=== PATIENT | female | born 1950 | race Hispanic/Latino ===

== ENCOUNTER 2017-09-19 11:51 | Outpatient (CLI) | payer MEDICARE ==
--- NOTE | 2017-09-19 12:36 | XRay Report ---
ROUTINE CHEST, TWO VIEWS: HISTORY: Fever. The trachea, heart, mediastinal contour, lung morton and bony thorax are unremarkable. IMPRESSION: Unremarkable chest x-ray. No evidence for pneumonia.
== END 2017-09-19 11:52 | disposition home or self-care (01) ==
LOC: XRAY 11:51
PROVIDERS: ATTEND Nurse Practitioner
DX: R50.9 Fever, unspecified (principal); M81.0 Age-related osteoporosis without current pathological fracture
CPT/HCPCS: 71046

== ENCOUNTER 2017-12-11 15:13 | Outpatient (CLI) | payer MEDICARE ==
--- NOTE | 2017-12-11 16:11 | Mammography Report ---
BILATERAL DIGITAL SCREENING MAMMOGRAM WITH CAD: 12/11/17 15:13:00 CLINICAL: Routine screening.Breast cancer survivor status post left partial mastectomy . COMPARISON:11/16/15 FINDINGS: The retroperitoneum is a dense, which may obscure small masses. The left breast is smaller than the right. Minimal postsurgical scar. No mass, architectural distortion or suspicious calcifications. IMPRESSION: No mammographic evidence of malignancy. BI-RADS CATEGORY: 2 -- Benign RECOMMENDATION: Routine mammographic screening in one year. COMMENT: Patient follow-up letters are generated via our [employer] application.
== END 2017-12-11 15:14 | disposition home or self-care (01) ==
LOC: SPVWC 15:13
PROVIDERS: ATTEND Internal Medicine Hematology & Oncology
DX: Z12.31 Encounter for screening mammogram for malignant neoplasm of breast (principal)
CPT/HCPCS: 77067

== ENCOUNTER 2018-12-12 13:00 | Outpatient (CLI) | payer MEDICARE ==
--- NOTE | 2018-12-12 16:01 | Mammography Report ---
BILATERAL DIGITAL SCREENING MAMMOGRAM WITH CAD INDICATION: Routine screening mammography. Breast cancer survivor status post left partial mastectomy . TECHNIQUE: Digital bilateral 2D mammography was obtained in the craniocaudal and mediolateral obliq ue projections. This examination was interpreted with the benefit of Computer-Aided Detection analysi s. COMPARISON: 12/11/2017 FINDINGS: Breast Density: There are scattered areas of fibroglandular density. There is no evidence of dominant mass, suspicious calcifications or architectural distortion in eith er breast. IMPRESSION:No mammographic evidence of malignancy. BI-RADS Category 1: Negative. No mammographic evidence of malignancy. Recommend routine screening m ammography in one year. A "normal" or negative report should not discourage follow up or biopsy of a clinically significant f inding. A written summary of these findings will be mailed to the patient. The patient will be entered into a mammography reporting system which will generate a reminder letter for the patient's next appointmen t at the appropriate interval. The [employer] recommends yearly mammograms starting at age 40 and continuing as l lauren as a woman is in good health. Breast MRI is recommended for women with an approximate 20-25% or greater lifetime risk of breast cancer, including women with a strong family history of breast or ova xu cancer or who have been treated for Hodgkin's disease. Signer Name: Isidro Lou MD Signed: 12/12/2018 3:57 PM Workstation Name: [id number]
== END 2018-12-12 13:01 | disposition home or self-care (01) ==
LOC: MAMMO 13:00 → SPVWC 13:00
PROVIDERS: ATTEND Internal Medicine Hematology & Oncology
DX: Z12.31 Encounter for screening mammogram for malignant neoplasm of breast (principal)
CPT/HCPCS: 77067

== ENCOUNTER 2019-04-02 11:04 | Outpatient (CLI) | payer MEDICARE ==
[2019-04-02 12:32] LABS: Basophils % (Auto) 0.6 % (0.0-1.8); Eosinophils # (Auto) 0.1 K/mm3 (0.0-0.4); Eosinophils % (Auto) 1.9 % (0.0-4.3); Hematocrit 43.2 % (30.3-42.9); Hemoglobin 14.7 gm/dl (10.1-14.3); Lymphocytes # (Auto) 1.3 K/mm3 (1.2-5.4); Lymphocytes % (Auto) 27.5 % (13.4-35.0); Mean Corpuscular HGB Conc 34 % (30-34); Mean Corpuscular Volume 92 fl (79-97); Monocytes # (Auto) 0.4 K/mm3 (0.0-0.8); Monocytes % (Auto) 7.8 % (0.0-7.3); Platelet Count 301 K/mm3 (140-440); Red Blood Count 4.72 M/mm3 (3.65-5.03); Red Cell Distribution Width 14.4 % (13.2-15.2)
[2019-04-02 12:50] LABS: BUN/Creatinine Ratio 20; Blood Urea Nitrogen 16 mg/dL (7-17); Calcium 9.5 mg/dL (8.4-10.2); Chol/HDL Ratio 3.43 %; HDL Cholesterol 53 mg/dL (40-59); Hemolysis Index 12; LDL Cholesterol,Direct 122 mg/dL (50-130)
== END 2019-04-02 11:05 | disposition home or self-care (01) ==
LOC: LAB 11:04
PROVIDERS: ATTEND Internal Medicine
DX: D72.818 Other decreased white blood cell count (principal); Z13.220 Encounter for screening for lipoid disorders; R73.03 Prediabetes; E87.6 Hypokalemia; E78.2 Mixed hyperlipidemia
CPT/HCPCS: 36415; 80048; 80061; 83036; 85025

== ENCOUNTER 2020-02-25 09:49 | Outpatient (CLI) | payer MEDICARE ==
--- NOTE | 2020-02-25 11:15 | Mammography Report ---
DIGITAL SCREENING MAMMOGRAM WITH CAD, 02/25/2020 INDICATION: Routine screening mammography. TECHNIQUE: Digital bilateral 2D mammography was obtained in the craniocaudal and mediolateral obliq ue projections. This examination was interpreted with the benefit of Computer-Aided Detection analysi s. COMPARISON: 12/11/2017, 12/12/2018 FINDINGS: Breast Density: The breasts are almost entirely fatty. There is no evidence of dominant mass, suspicious calcifications or architectural distortion in eithe r breast. Left breast postlumpectomy and radiation change, stable in appearance. Overall, no interval change in the appearance of the mammogram. IMPRESSION: No evidence of malignancy. Follow up recommendation: Routine yearly BI-RADS Category 2: Benign. A "normal" or negative report should not discourage follow up or biopsy of a clinically significant f inding. A written summary of these findings will be mailed to the patient. The patient will be entered into a mammography reporting system which will generate a reminder letter for the patient's next appointmen t at the appropriate interval. The [employer] recommends yearly mammograms starting at age 40 and continuing as l lauren as a woman is in good health. Breast MRI is recommended for women with an approximate 20-25% or greater lifetime risk of breast cancer, including women with a strong family history of breast or ova xu cancer or who have been treated for Hodgkin's disease. Signer Name: Nayely Valenzuela MD Signed: 02/25/2020 11:11 AM Workstation Name: [id number]
== END 2020-02-25 09:50 | disposition home or self-care (01) ==
LOC: SPVWC 09:49
PROVIDERS: ATTEND Internal Medicine Hematology & Oncology
DX: Z12.31 Encounter for screening mammogram for malignant neoplasm of breast (principal); N64.89 Other specified disorders of breast
CPT/HCPCS: 77067

== ENCOUNTER 2020-03-13 09:44 | Day surgery (SDC) | payer MEDICARE ==
--- NOTE | 2020-03-13 10:27 | Anesthesia Day of Surgery ---
Anesthesia Day of Surgery - Day of Surgery Patient Examined: Yes Patient H&P Reviewed: Yes Patient is NPO: Yes
--- NOTE | 2020-03-13 10:27 | Anesthesia Consultation ---
Anesthesia Consult and Med Hx Date of service: 03/13/20 - Airway Anesthetic Teeth Evaluation: Edentulous ROM Head & Neck: Adequate Mental/Hyoid Distance: Adequate Mallampati Class: Class I Intubation Access Assessment: Good - Pulmonary Exam CTA: Yes - Cardiac Exam Cardiac Exam: RRR - Pre-Operative Health Status ASA Pre-Surgery Classification: ASA2 Proposed Anesthetic Plan: MAC - Pulmonary Hx Smoking: No Hx Respiratory Symptoms: No - Cardiovascular System Hx Hypertension: Yes (took antihypertensive this morning) Hx Heart Attack/AMI: No Hx Percutaneous Transluminal Coronary Angioplasty (PTCA): No - Central Nervous System CVA: No - Gastrointestinal Hx Gastroesophageal Reflux Disease: No - Endocrine Hx Renal Disease: No Hx Liver Disease: No Hx Insulin Dependent Diabetes: No Hx Non-Insulin Dependent Diabetes: No Hx Thyroid Disease: No - Other Systems Hx Obesity: Yes (BMI 34) - Additional Comments Anesthesia Medical History Comments: Patient has caregiver at bedside.
[2020-03-13] MEDS ORDERED: SODIUM CHLORIDE 0.9% 1000 ML 1,000 ML IV SCH (10:30)
[2020-03-13] MEDS ORDERED: propofoL 200 MG/20 ML VIAL IV ONE (11:09)
--- NOTE | 2020-03-13 12:13 | Procedure Note ---
Date of procedure: 03/13/20 Pre-op diagnosis: Colon Polyp Screening/ P/H/O Cancer ( Breast Cancer) Post-op diagnosis: other (Solitary,Small Rectal Polyp/Proctitis (possibly non- specific)/Few,Minor Diverticuli (left Colon)) Anesthesia: MAC Surgeon: GIOVANNA CID Estimated blood loss: minimal Pathology: list Specimen disposition: to lab Condition: stable Disposition: same day (Avoid aspirin and NSAID for 5 days; otherwise resume home medication and follow up in 1 to 2 weeks ([phone]).)
--- NOTE | 2020-03-13 12:34 | Post Anesthesia Evaluation ---
- Post Anesthesia Evaluation Patient Participated: No (mentation at baseline) Airway Patent: Yes Stable Respiratory Function: Yes Nausea/Vomiting: No Temp > 96.8F: Yes Pain Manageable: Yes Adequeate Hydration: Yes Anesthesia Complications: No
[2020-03-13 12:43] VITALS: BP 125/60
--- NOTE | 2020-03-13 12:44 | Operative Report ---
PROCEDURE PERFORMED: Colonoscopy. INDICATIONS: A 70-year-old white female with a prior history of breast cancer for which she has had surgery done. Colonoscopy was done as part of colon polyp screening. She has never had a prior colonoscopy. DESCRIPTION OF PROCEDURE: The procedure was done after getting informed consent with MAC anesthesia. Initial rectal exam was unremarkable. Instrument was passed through the rectum onto the cecum, which was identified with ileocecal valve and the appendiceal orifice. The terminal ileum was intubated, showed normal ileal mucosa. Cecum, ascending colon, transverse colon showed normal mucosa. There were a few minor diverticula noted in the left colon and otherwise the sigmoid and the descending colon showed normal mucosa. In the rectum, there was a solitary 8-9 mm polyp that was removed by cold biopsy. There was some mild proctitis noted, possibly nonspecific in type, which was also biopsied and the rectum appeared normal on the retroverted view. There was minimal bleeding from the biopsy sites. No complications associated with the procedure. ASSESSMENT: Colon polyp screening, past history of breast cancer, solitary rectal polyp, mild proctitis, possibly nonspecific minor diverticula involving the left colon and normal ileal mucosa. Again, there was minimal bleeding associated with the procedure. No complications associated with the procedure. The patient will be asked to avoid aspirin and aspirin-related products for the next few days. Otherwise, resume home medication and follow up in the office in 1-2 weeks' time. The patient is advised to follow up in 1-2 weeks' time. The procedure was done in the GI lab with assistance of the GI lab team, which included KRISTINA Schmid, dejon yHman and with the assistance of Anesthesia. JOB# [id number] GIOVANA/CATARINO
== END 2020-03-13 13:07 | disposition home or self-care (01) ==
LOC: GIO 09:44
DX: Z12.11 Encounter for screening for malignant neoplasm of colon (principal); K57.30 Diverticulosis of large intestine without perforation or abscess without bleeding; K62.1 Rectal polyp; K62.89 Other specified diseases of anus and rectum; I10 Essential (primary) hypertension; E66.9 Obesity, unspecified; Z85.3 Personal history of malignant neoplasm of breast; Z79.899 Other long term (current) drug therapy; Z79.82 Long term (current) use of aspirin; Z68.34 Body mass index [BMI] 34.0-34.9, adult
CPT/HCPCS: 45380; 88305; J2704; J7030

== ENCOUNTER 2020-05-05 09:20 | Outpatient (CLI) | payer MEDICARE ==
[2020-05-05 10:04] LABS: Chol/HDL Ratio 3.43 %
== END 2020-05-05 09:21 | disposition home or self-care (01) ==
LOC: LAB 09:20
PROVIDERS: ATTEND Internal Medicine
DX: Z13.220 Encounter for screening for lipoid disorders (principal); R73.03 Prediabetes; I10 Essential (primary) hypertension
CPT/HCPCS: 36415; 80061; 83036

== ENCOUNTER 2020-12-23 09:41 | Outpatient (CLI) | payer MEDICARE ==
[2020-12-23 10:31] LABS: Basophils # (Auto) 0.1 K/mm3 (0.0-0.1); Basophils % (Auto) 1.8 % (0.0-1.8); Hematocrit 37.9 % (30.3-42.9); Hemoglobin 13.1 gm/dl (10.1-14.3); Lymphocytes % (Auto) 21.3 % (13.4-35.0); Mean Corpuscular HGB Conc 35 % (30-34); Mean Corpuscular Volume 93 fl (79-97); Monocytes # (Auto) 0.4 K/mm3 (0.0-0.8); Monocytes % (Auto) 9.4 % (0.0-7.3); Platelet Count 286 K/mm3 (140-440); Red Blood Count 4.09 M/mm3 (3.65-5.03); Red Cell Distribution Width 14.4 % (13.2-15.2)
[2020-12-23 10:57] LABS: Chol/HDL Ratio 2.71 %
[2020-12-26 12:32] LABS: Vitamin D, 25-OH, D2 <4 ng/mL
== END 2020-12-23 09:42 | disposition home or self-care (01) ==
LOC: LAB 09:41
PROVIDERS: ATTEND Internal Medicine
DX: Z13.220 Encounter for screening for lipoid disorders (principal); Z13.29 Encounter for screening for other suspected endocrine disorder; R73.03 Prediabetes; E55.9 Vitamin D deficiency, unspecified; I10 Essential (primary) hypertension
CPT/HCPCS: 36415; 80061; 82306; 83036; 84443; 85025

== ENCOUNTER 2021-07-20 08:52 | Outpatient (CLI) | payer MEDICARE ==
[2021-07-20 09:47] LABS: Basophils # (Auto) 0.1 K/mm3 (0.0-0.1); Basophils % (Auto) 1.5 % (0.0-1.8); Eosinophils # (Auto) 0.2 K/mm3 (0.0-0.4); Eosinophils % (Auto) 3.6 % (0.0-4.3); Hematocrit 44.2 % (30.3-42.9); Hemoglobin 14.4 gm/dl (10.1-14.3); Lymphocytes # (Auto) 1.1 K/mm3 (1.2-5.4); Lymphocytes % (Auto) 22.1 % (13.4-35.0); Mean Corpuscular HGB Conc 33 % (30-34); Mean Corpuscular Volume 93 fl (79-97); Monocytes # (Auto) 0.3 K/mm3 (0.0-0.8); Monocytes % (Auto) 5.8 % (0.0-7.3); Red Blood Count 4.77 M/mm3 (3.65-5.03); Red Cell Distribution Width 14.4 % (13.2-15.2)
[2021-07-20 09:49] LABS: Platelet Count 353 K/mm3 (140-440)
[2021-07-20 09:56] LABS: Bilirubin,Urine NEG (Negative); Blood,Urine SM (Negative); Color,Urine Yellow (Yellow); Protein,Urine <15 mg/dL mg/dL (Negative); Urobilinogen,Urine < 2.0 mg/dL (<2.0); WBC,Urine > 182.0 /HPF (0.0-6.0)
[2021-07-20 09:57] LABS: Bacteria,Urine 2+ /HPF (Negative)
[2021-07-20 10:08] LABS: Alanine Aminotransferase 12 units/L (7-56); Albumin 4.5 g/dL (3.9-5); Blood Urea Nitrogen 17 mg/dL (7-17); Calcium 9.8 mg/dL (8.4-10.2); Hemolysis Index 2
[2021-07-20 10:12] LABS: BUN/Creatinine Ratio 28
== END 2021-07-20 08:53 | disposition home or self-care (01) ==
LOC: LAB 08:52
PROVIDERS: ATTEND Internal Medicine
DX: I10 Essential (primary) hypertension (principal); E87.6 Hypokalemia; R73.03 Prediabetes; N39.0 Urinary tract infection, site not specified
CPT/HCPCS: 36415; 80053; 81001; 83036; 85025

== ENCOUNTER 2021-10-06 09:29 | Outpatient (CLI) | payer MEDICARE ==
--- NOTE | 2021-10-07 14:42 | Mammography Report ---
DIGITAL SCREENING MAMMOGRAM WITH CAD, 10/06/2021 CLINICAL INFORMATION / INDICATION: Routine screening mammography. SCREENING MAMMO TECHNIQUE: Digital bilateral 2D mammography was obtained in the craniocaudal and mediolateral obliqu e projections. This examination was interpreted with the benefit of Computer-Aided Detection analysis . COMPARISON: 11/16/2015 through 02/25/2020. FINDINGS: Breast Density: There are scattered areas of fibroglandular density. No dominant mass, suspicious calcifications, or architectural distortion in the right breast. The left breast is smaller than the right and there is mild associated nipple retraction on the left. These findings are stable and presumably related to prior surgery. No new abnormality is seen. IMPRESSION: No mammographic evidence of malignancy. Follow up recommendation: Routine yearly screening mammogram. BI-RADS Category 2: BENIGN. A "normal" or negative report should not discourage follow up or biopsy of a clinically significant f inding. A written summary of these findings will be mailed to the patient. The patient will be entered into a mammography reporting system which will generate a reminder letter for the patient's next appointmen t at the appropriate interval. The [employer] recommends yearly mammograms starting at age 40 and continuing as l lauren as a woman is in good health. Breast MRI is recommended for women with an approximate 20-25% or greater lifetime risk of breast cancer, including women with a strong family history of breast or ova xu cancer or who have been treated for Hodgkin's disease. Signer Name: Shashank Valencia MD Signed: 10/07/2021 2:37 PM Workstation Name: [id number]
== END 2021-10-06 09:30 | disposition home or self-care (01) ==
LOC: SPVWC 09:29
PROVIDERS: ATTEND Internal Medicine
DX: Z12.31 Encounter for screening mammogram for malignant neoplasm of breast (principal); N64.89 Other specified disorders of breast
CPT/HCPCS: 77067

== ENCOUNTER 2022-01-27 10:30 | Outpatient (CLI) | payer MEDICARE ==
[2022-01-27 12:24] LABS: Basophils % (Auto) 0.6 % (0.0-1.8); Eosinophils # (Auto) 0.1 K/mm3 (0.0-0.4); Hematocrit 39.8 % (30.3-42.9); Hemoglobin 13.2 gm/dl (10.1-14.3); Lymphocytes # (Auto) 1.3 K/mm3 (1.2-5.4); Lymphocytes % (Auto) 25.5 % (13.4-35.0); Mean Corpuscular HGB Conc 33 % (30-34); Mean Corpuscular Volume 92 fl (79-97); Monocytes # (Auto) 0.4 K/mm3 (0.0-0.8); Monocytes % (Auto) 8.6 % (0.0-7.3); Platelet Count 290 K/mm3 (140-440); Red Blood Count 4.32 M/mm3 (3.65-5.03); Red Cell Distribution Width 14.2 % (13.2-15.2)
[2022-01-27 12:38] LABS: Alanine Aminotransferase 11 units/L (7-56); Albumin 4.3 g/dL (3.9-5); Blood Urea Nitrogen 24 mg/dL (7-17); Calcium 9.5 mg/dL (8.4-10.2); Chol/HDL Ratio 3.17 %; HDL Cholesterol 45 mg/dL (40-59); Hemolysis Index 13; LDL Cholesterol,Direct 80 mg/dL (50-130)
[2022-01-27 12:41] LABS: Mucus,Urine FEW /HPF
[2022-01-27 12:43] LABS: BUN/Creatinine Ratio 34
[2022-01-27 12:44] LABS: Color,Urine Straw (Yellow)
[2022-01-30 14:43] LABS: Vitamin D, 25-OH, D2 <4 ng/mL
== END 2022-01-27 10:31 | disposition home or self-care (01) ==
LOC: LABHHL 10:30
PROVIDERS: ATTEND Internal Medicine
DX: R73.03 Prediabetes (principal); E66.9 Obesity, unspecified; E87.6 Hypokalemia; N39.0 Urinary tract infection, site not specified; I10 Essential (primary) hypertension; Z00.00 Encounter for general adult medical examination without abnormal findings
CPT/HCPCS: 36415; 80053; 80061; 81001; 82306; 85025